=== PATIENT | female | born 1970 ===

== ENCOUNTER 2018-02-25 15:23 | Outpatient (CLI) | payer OTHER ==
[~2018-02-25] VITALS: Ht 170.2 cm; Wt 74.4 kg
== END 2018-02-25 15:45 | disposition home or self-care (01) ==
LOC: OFIC 805 15:23
DX: R49.0 Dysphonia (principal); J38.2 Nodules of vocal cords; K21.0 Gastro-esophageal reflux disease with esophagitis

== ENCOUNTER 2018-04-07 15:28 | Outpatient (CLI) | payer OTHER ==
[~2018-04-07] VITALS: Ht 152.4 cm; Wt 74.4 kg
== END 2018-04-07 15:45 | disposition home or self-care (01) ==
LOC: OFIC 805 15:28
DX: R49.0 Dysphonia (principal); J38.2 Nodules of vocal cords; K21.0 Gastro-esophageal reflux disease with esophagitis